=== PATIENT | female | born 1990 | race Caucasian/White ===

== ENCOUNTER 2017-04-18 20:40 | Emergency (ER) | payer OTHER ==
[2017-04-18] MEDS ORDERED: SULFAMETHOXAZOLE/TRIMETHOPRIM 1 EACH TABLET PO ONE (22:02)
--- NOTE | 2017-04-18 22:11 | ED Physician Documentation ---
Abscess - HISTORIAN Historian: patient - HPI Stated Complaint: Swelling to Rt side of neck, possible insect bite during sleep last evening Chief Complaint: Abscess (Neck swelling) Additional Information: Pt is a 27 yo female that presents with right sided neck pain and swelling since yesterday morning. Pt reports she woke up with right sided neck pain and could feel and area of extreme tenderness just below her ear - thought she might have been bitten by a spider. States awoke this morning with a lot more pain and swelling. Denies drainage, F/C or other complaints. Does report pain when rotating her neck. Denies difficulty swallowing. Has never had anything like this before. Timing: worse Duration: worse, persistent since Location: neck (right) Where: home - ROS CONST: none CVS/RESP: none EYES/ENT: none GI/: none MS/SKIN/LYMPH: other (right neck pain and swelling) NEURO/PSYCH: none - PAST HX Past History: other (migraines) Allergies/Adverse Reactions: Allergies Allergy/AdvReac Type Severity Reaction Status Date / Time No Known Allergies Allergy Verified 04/18/17 20:58 Home Medications: Ambulatory Orders Medication Instructions Recorded NK [NK] 08/05/13 - SOCIAL HX Smoking History: non-smoker - FAMILY HX Family History: none - VITAL SIGNS Vital Signs: Vital Signs Temp Pulse Resp BP Pulse Ox 98.4 F 61 18 131/73 96 04/18/17 20:40 04/18/17 20:40 04/18/17 20:40 04/18/17 20:40 04/18/17 20:40 - REVIEWED ASSESSMENTS Nursing Assessment Reviewed: Yes Vitals Reviewed: Yes Progress - Progress Progress: Due to degree of swelling I will CT the pts neck to r/o potential deep abscess. ED Results Lab/Radiology - Radiology Radiology Impressions: CT soft tissue neck Impression: Mild subcutaneous stranding within the posterior aspect of the right neck extending to the supraclavicular region which may represent mild cellulites. No abscess seen. Normal airway - Orders Orders: ED Orders Category Date Time Status CT NECK SOFT TISSUE W/O CON Stat Exams 04/18/17 Taken Sulfamethoxazole/Trimethoprim [Bactrim Ds] Med 04/18/17 22:02 Once 1 each PO NOW ONE Abscess Physical Exam - EXAM General Appearance: no acute distress Skin: other (Right neck - two small punctate skin lesions are noted on the right neck just below the ear consistent with potential bite. No induration or fluctuance is appreciated but there is noticeable difference in swelling on the right anterior portion of pts neck.) Location: anterior neck Character: asymmetric Symptoms: warmth, tenderness, swelling. No: induration Extremities: non-tender EENT: gums nml, pharynx nml. No: pharyngeal erythema, pharyngeal swelling Neck: trachea midline, other (Pain is elicited with rotation, ext/flexion and side-bending). No: meningismus Respiratory: no resp distress, breath sounds normal CVS: reg. rate & rhythm, heart sounds nml Abdomen: non-tender Neuro/Psych: oriented x3 Discharge Clincal Impression: Cellulitis of neck Referrals: Brigida Powell MD [Primary Care Provider] - 2 Days Additional Instructions: Take medications as prescribed. Take Ibuprofen for pain control. Call tomorrow to your PCP for follow up in 3-5 days. Return to the ED should your symptoms worsen or not improve. Home Medications: Ambulatory Orders NK [NK] 08/05/13 Condition: Good Disposition: 01 HOME, SELF-CARE Decision to Admit: NO Decision Time: 22:07
--- NOTE | 2017-04-19 01:01 | Diagnostic Imaging Report ---
[facility] ED [facility] [place] [facility] [id number] [facility] [address] [place], [place]. [address] Report Submission Date: Apr 18, 2017 9:38:45 PM CDT Patient Study Name: LINDSAY JORDAN Date: Apr 18, 2017 9:21:07 PM CDT Modality Type: CT\SR Gender: F Description: CT NECK SOFT TISSUE W/ : 88 Institution: [facility] Physician: EDITH LEE ED CT soft tissue neck without contrast. History: Right neck soft tissue swelling. Technique: Transaxial computed tomography images of the neck were obtained following according to standard protocol. Findings: There is mild subcutaneous stranding within the posterior aspect of the right neck extending to the supraclavicular region which may represent mild cellulitis. No evidence of abscess. The skull base is normal. No evidence of peritonsillar inflammation or focal fluid collection identified. The airway is widely patent. The epiglottis and aryepiglottic folds are normal. There is no lymphadenopathy present with the neck. The parotid and submandibular glands are normal. The vastus structures normal course and caliber. The lung apices are clear. Impression: 1. Mild subcutaneous stranding within the posterior aspect of the right neck extending to the supraclavicular region which may represent mild cellulitis. No evidence of abscess 2. Normal airway. Electronically signed on Apr 18, 2017 9:38:45 PM CDT by: Mayank AREVALO
[2017-04-19 06:08] VITALS: BP 128/71
== END 2017-04-18 22:05 | disposition home or self-care (01) ==
LOC: ED 20:40
DX: L03.221 Cellulitis of neck (principal)
CPT/HCPCS: 70490

== ENCOUNTER 2017-09-26 01:15 | Emergency (ER) | payer OTHER ==
[2017-09-26 01:29] VITALS: BP 134/73
[2017-09-26] MEDS ORDERED: hydrOXYzine HCL 50 MG/ML VIAL IM ONE (01:45)
--- NOTE | 2017-09-26 01:45 | ED Physician Documentation ---
Headache - HISTORIAN Historian: patient - HPI Stated Complaint: Migraine with nausea/vomiting Chief Complaint: Headache Additional Information: x8 hrs. takes execdrin migraine, has been to er once before. doesnt take prescription meds for it anymore. frontal headache, N/V Onset: hours Timing: gradual New Gradual Onset: No Exposure To: none Severity: mild Quality: similar to previous Associated Symptoms: nausea, vomiting Preceding Symptoms: denies: visual disturbance, scotoma Exacerbated By: light, noise Further Comments: no - ROS NEURO/PSYCH: denies: confusion EYES/ENT: denies: sore throat, difficulty swallowing CVS/RESP: none GI/: denies: abdominal pain MS/SKIN/LYMPH: denies: muscle aches all systems neg except as marked: Yes - PAST HX Medical History: migraines Surgical History: no surgical history Allergies/Adverse Reactions: Allergies Allergy/AdvReac Type Severity Reaction Status Date / Time No Known Allergies Allergy Verified 09/26/17 01:30 Home Medications: Ambulatory Orders Medication Instructions Recorded Phentermine HCl [Suprenza Odt] 15 mg PO DAILY 09/26/17 - SOCIAL HX Smoking History: non-smoker Alcohol Use: none Drug Use: none - Family HX Family History: none - VITAL SIGNS Vital Signs: Vital Signs Temp Pulse Resp BP Pulse Ox 82 18 134/73 09/26/17 01:15 09/26/17 01:15 09/26/17 01:15 - REVIEWED ASSESSMENTS Nursing Assessment Reviewed: Yes Vitals Reviewed: Yes ED Results Lab/Radiology - Orders Orders: ED Orders Category Date Time Status Ketorolac Tromethamine [Toradol] Med 09/26/17 01:39 Once 30 mg IM NOW ONE Metoclopramide HCl [Reglan] Med 09/26/17 01:38 Once 10 mg PO NOW ONE hydrOXYzine HCL [Vistaril] Med 09/26/17 01:41 Ordered 50 mg IM NOW PRN Headache Physical Exam - EXAM General Appearance: no acute distress, alert EENT: no facial swelling, eyes nml inspection Neck: normal inspection Respiratory: no resp distress Abdomen: non-tender Skin: color nml, no rash Extremitites: non-tender, normal range of motion, no evidence of injury - NEURO/PSYCH Higher Functions: alert, oriented x3, nml speech, mood/affect nml Cranial: no evidence of acute CVA Discharge Clincal Impression: Migraine Qualifiers: Migraine type: unspecified Status migrainosus presence: without status migrainosus Intractability: not intractable Qualified Code(s): G43.909 - Migraine, unspecified, not intractable, without status migrainosus Referrals: Brigida Powell MD [Primary Care Provider] - 2 Days Condition: Stable Disposition: 01 HOME, SELF-CARE Decision to Admit: NO Date of Decison to Admit: 09/26/17 Decision Time: 01:46
[2017-09-26] MEDS: METOCLOPRAMIDE HCL 5 MG TABLET PO ONE (01:49)
[2017-09-26] MEDS: KETOROLAC TROMETHAMINE 30 MG/1ML VIAL IM ONE (01:49)
[2017-09-26] MEDS: hydrOXYzine HCL 50 MG/ML VIAL IM PRN (01:49)
== END 2017-09-26 02:00 | disposition home or self-care (01) ==
LOC: ED 01:19
DX: G43.909 Migraine, unspecified, not intractable, without status migrainosus (principal)
CPT/HCPCS: J1885; J3410; 96372; 99283